=== PATIENT | female | born 1980 | race African-American/Black ===

== ENCOUNTER 2017-04-04 12:36 | Emergency (ER) | payer OTHER ==
[~2017-04-04] VITALS: Ht 160 cm; Wt 93.0 kg
[2017-04-04 13:56] LABS: INFLUENZA A NEG (NEG); INFLUENZA B NEG (NEG)
== END 2017-04-04 14:14 | disposition home or self-care (01) ==
LOC: CFTX 12:36 → CED 12:36 → CFTX 13:30
PROVIDERS: Nurse Practitioner
DX: J06.9 Acute upper respiratory infection, unspecified (principal); E11.9 Type 2 diabetes mellitus without complications; I10 Essential (primary) hypertension; Z98.890 Other specified postprocedural states
CPT/HCPCS: 87804; 99283